=== PATIENT | female | born 1980 | race Caucasian/White ===

== ENCOUNTER → 2016-05-03 | Outpatient (CLI) | payer BC, MEDICAID ==
[~2016-05-03] MED LIST: ALPR.25T PO; AMOX500C2 PO; BCP; DEPO SHOTS IM; FLUO20CA25 PO; HYDR1TAB PO; PRM25T PO; PROP40TA5 PO
--- NOTE | 2016-05-03 12:49 | Diagnostic Imaging Report ---
CLINICAL INDICATION: Patient complains of right lateral ankle pain after rolling ankle this morning on steps. EXAM: X-ray of the right ankle, three views. COMPARISON: None. FINDINGS: There is soft tissue swelling seen lateral to the lateral malleolar region. There is no acute fracture or dislocation. The ankle mortise and syndesmotic joints are unremarkable. There is a focal high-density area seen overlying the skin region adjacent to the lateral malleolar area. This may be outside of patient and is not seen on the other imaging. IMPRESSION: 1: There is no evidence of acute fracture or dislocation. 2: There is mild soft tissue swelling seen lateral to the lateral malleolar region. If there is clinical concern for ligamentous injury, then MRI would better evaluate. Results of this report regarding no fracture were discussed with DONAVAN Luong via the telephone on 05/03/2016 at 1245 hours. Dictated by: Dictated on workstation # [id number]
== END ==
LOC: RAD 12:17
PROVIDERS: ATTEND Nurse Practitioner Family
DX: M25.571 Pain in right ankle and joints of right foot (principal)
CPT/HCPCS: 73610